=== PATIENT | female | born 1960 | race African-American/Black ===

== ENCOUNTER 2018-11-19 09:56 | Observation (INO) ==
[2018-11-19] MEDS ORDERED: MORPHINE 4 MG/1 ML VIAL IV STA (10:25)
[2018-11-19] MEDS ORDERED: ONDANSETRON 4 MG/2 ML VIAL IV STA (10:25)
[2018-11-19] MEDS ORDERED: ASPIRIN 325 MG TABLET PO STA (10:25)
[2018-11-19 11:29] LABS: Basophils % 0.4 % (0.0-0.8); Eosinophils # 0.1 10*3/uL (0.0-0.87); Eosinophils % 1.4 % (0.00-10.9); Hemoglobin 10.9 GM/DL (12.0-16.0); Immature Granulocytes % 0.3 %; Immature Granulocytes Absolute 0.03 #; Lymphocytes # 1.1 10*3/uL (1.4-4.0); Lymphocytes % 11.9 % (21.3-54.2); Mean Corpuscular HGB Conc 30.3 GM/DL (32-36); Mean Corpuscular Hemoglobin 27 PG (27-34); Mean Corpuscular Volume 87.8 FL (87-102); Mean Platelet Volume 10.7 FL (9.6-12.0); Monocytes # 0.6 10*3/uL (0.11-0.8); Monocytes % 6.5 % (1.7-12.7); Neutrophils # 7.5 10*3/uL (1.4-7.4); Neutrophils % 79.5 % (38.7-73.9); Platelet Count 229 T/CUMM (130-400); Red Cell Distribution Width 14.7 % (9.3-17.3); White Blood Count 9.4 T/CUMM (4-12)
[2018-11-19 11:38] LABS: INR 0.9
[2018-11-19] MEDS ORDERED: hydrALAZINE 20 MG/1 ML VIAL IV STA (11:56)
[2018-11-19 11:59] LABS: Alanine Aminotransferase 23 U/L (13-56); Albumin 3.2 G/DL (3.4-5.0); Alkaline Phosphatase 73 U/L (45-117); Amylase 100 U/L (25-115); Aspartate Amino Transferase 18 U/L (0-37); Bilirubin,Total < 0.39 MG/DL (0.2-1.0); Blood Urea Nitrogen 28 MG/DL (7-18); Calcium 8.9 MG/DL (8.5-10.1); Glucose 149 MG/DL (74-106); Osmolality,Calculated 287.4 MOS/KG (273-304); Potassium 4.3 MMOL/L (3.5-5.1); Sodium 140 MMOL/L (136-145); Total Protein 7.2 G/DL (6.4-8.3)
[2018-11-19] MEDS ORDERED: ALBUTEROL 2.5 MG/3 ML NEB RESP TX PRN (13:46)
[2018-11-19] MEDS ORDERED: DOCUSATE SODIUM 100 MG CAPSULE PO PRN (13:46)
[2018-11-19] MEDS ORDERED: GLUCAGON 1 MG VIAL IM PRN (13:52)
[2018-11-19] MEDS ORDERED: DEXTROSE 50% 25 GM/50 ML VIAL IV PRN (13:52)
[2018-11-19] MEDS ORDERED: ALBUTEROL/IPRATROPIUM 3 ML NEB RESP TX PRN (14:21)
[2018-11-19] MEDS ORDERED: hydrALAZINE 20 MG/1 ML VIAL IV PRN (15:37)
[2018-11-19 18:17] LABS: Troponin I 0.015 NG/ML (0.00-0.045)
[2018-11-19] MEDS: GABAPENTIN 100 MG CAPSULE PO SCH ×2 (18:33→20:53)
[2018-11-19] MEDS: INSULIN LISPRO 100 UNIT/ML SUBCUT SCH ×2 (18:34→21:02)
[2018-11-19] MEDS: ACETAMINOPHEN 325 MG TABLET PO SCH ×2 (18:34→21:57)
[2018-11-19] MEDS: glipiZIDE 5 MG TABLET PO SCH (18:34)
[2018-11-19] MEDS ORDERED: ALBUTEROL/IPRATROPIUM 3 ML NEB RESP TX SCH (19:00)
[2018-11-19] MEDS: ACETAMINOPHEN 325 MG TABLET PO PRN (19:34)
[2018-11-19] MEDS: FLUTICASONE 44 MCG/PUFF INHALER 10.6 GM INH SCH (20:54)
[2018-11-19] MEDS: CARVEDILOL 12.5 MG TABLET PO SCH (20:54)
[2018-11-19] MEDS ORDERED: cloNIDine 0.1 MG TABLET PO SCH (21:00)
[2018-11-19] MEDS ORDERED: ATORVASTATIN 40 MG TABLET PO SCH (21:00)
[2018-11-19] MEDS ORDERED: MELATONIN 3 MG TABLET PO SCH (21:00)
[2018-11-19] MEDS ORDERED: SERTRALINE 25 MG TABLET PO SCH (21:00)
[2018-11-20 03:34] LABS: Basophils % 0.5 % (0.0-0.8); Eosinophils # 0.1 10*3/uL (0.0-0.87); Hemoglobin 9.5 GM/DL (12.0-16.0); Immature Granulocytes % 0.2 %; Immature Granulocytes Absolute 0.01 #; Lymphocytes % 16.4 % (21.3-54.2); Mean Corpuscular HGB Conc 30.6 GM/DL (32-36); Mean Corpuscular Hemoglobin 27 PG (27-34); Mean Corpuscular Volume 86.8 FL (87-102); Mean Platelet Volume 10.8 FL (9.6-12.0); Monocytes # 0.7 10*3/uL (0.11-0.8); Monocytes % 11.7 % (1.7-12.7); Neutrophils # 4.1 10*3/uL (1.4-7.4); Neutrophils % 69.2 % (38.7-73.9); Platelet Count 190 T/CUMM (130-400); Red Blood Count 3.57 MC/CUMM (3.8-5.5); Red Cell Distribution Width 14.5 % (9.3-17.3)
[2018-11-20 03:54] LABS: Calcium 8.3 MG/DL (8.5-10.1); Osmolality,Calculated 289.4 MOS/KG (273-304); Potassium 4.1 MMOL/L (3.5-5.1); Risk Ratio 3.14; Thyroid Stimulating Hormone 1.77 uIU/ml (0.358-3.74)
[2018-11-20] MEDS: ACETAMINOPHEN 325 MG TABLET PO PRN (06:23)
[2018-11-20 06:35] LABS: Apearance,Urine CLEAR (Clear); Bacteria,Urine Occasional /HPF (Few); Bilirubin,Urine Negative (Negative); Blood, Urine Negative (Negative); Glucose,Urine (UA) 50 mg/dL (Negative); Hyaline Casts,Urine 1 /LPF (0-3); Ketones,Urine Negative (Negative); Mucus,Urine Occasional /LPF (Occasional); Nitrite,Urine Negative (Negative); Protein,Urine >=500 MG/DL; RBC,Urine 1 /HPF (0-4); Squamous Epithelial Cell,Urine Occasional /HPF (0-10); Urine Color Yellow (Yellow); Urine Specific Gravity 1.012 (1.001-1.035); Urine Urobilinogen < 2.0 EU/DL (0.2-1.0); WBC,Urine <1 /HPF (0-6)
[2018-11-20] MEDS ORDERED: TRIAMTERENE/HCTZ 37.5-25 MG TABLET PO SCH (09:00)
[2018-11-20] MEDS ORDERED: FUROSEMIDE 20 MG TABLET PO SCH (09:00)
[2018-11-20] MEDS ORDERED: OLMESARTAN 20 MG TABLET PO SCH (09:00)
[2018-11-20] MEDS ORDERED: MONTELUKAST 10 MG TABLET PO SCH (09:00)
[2018-11-20] MEDS ORDERED: CETIRIZINE 10 MG TABLET PO SCH (09:00)
[2018-11-20] MEDS ORDERED: Olopatadine Hcl [Pataday 0.2% Oph Soln] BOTH EYES SCH (09:00)
[2018-11-20] MEDS ORDERED: FEXOFENADINE 180 MG TABLET PO SCH (09:00)
[2018-11-20] MEDS ORDERED: OMEGA 3 ACID ETHYL ESTERS 1 GM CAPSULE PO SCH (09:00)
[2018-11-20] MEDS ORDERED: ASPIRIN EC 81 MG TABLET PO SCH (09:00)
[2018-11-20] MEDS ORDERED: MULTIVITAMIN (CENTRUM) TABLET PO SCH (09:00)
[2018-11-20] MEDS ORDERED: GABAPENTIN 100 MG CAPSULE PO SCH (09:00)
[2018-11-20] MEDS: glipiZIDE 5 MG TABLET PO SCH (09:09)
[2018-11-20] MEDS: INSULIN LISPRO 100 UNIT/ML SUBCUT SCH ×2 (09:09→12:38)
[2018-11-20] MEDS: CARVEDILOL 12.5 MG TABLET PO SCH (09:13)
[2018-11-20] MEDS: FLUTICASONE 44 MCG/PUFF INHALER 10.6 GM INH SCH (09:13)
[2018-11-20] MEDS: ACETAMINOPHEN 325 MG TABLET PO SCH (09:20)
[2018-11-20] MEDS: GABAPENTIN 100 MG CAPSULE PO SCH ×2 (09:20→16:07)
[2018-11-20 11:37] VITALS: BP 122/67
[2018-11-20] MEDS ORDERED: ATORVASTATIN 40 MG TABLET PO SCH (11:52)
[2018-11-20] MEDS ORDERED: DIGOXIN 0.125 MG TABLET PO SCH (13:00)
== END 2018-11-20 16:06 | disposition home or self-care (01) ==
LOC: N.EDINP 09:56 → N.ED 09:56 → N.EDINP 16:06 → N.TELEN 16:16
PROVIDERS: ADMIT Internal Medicine; ATTEND Internal Medicine

== ENCOUNTER 2018-12-06 10:07 | Inpatient (IN) ==
[2018-12-06] MEDS ORDERED: ADENOSINE 6 MG/2 ML VIAL ONE (10:27)
[2018-12-06] MEDS ORDERED: ADENOSINE 6 MG/2 ML VIAL IV STA (10:30)
[2018-12-06] MEDS ORDERED: CARVEDILOL 3.125 MG TABLET PO STA (11:19)
[2018-12-06] MEDS ORDERED: ONDANSETRON 4 MG/2 ML VIAL IV PRN (11:35)
[2018-12-06] MEDS ORDERED: MAGNESIUM SULF RIDER 2 GM in PREMIX 1 EACH IV PRN (11:35)
[2018-12-06] MEDS ORDERED: DOCUSATE SODIUM 100 MG CAPSULE PO PRN (11:35)
[2018-12-06] MEDS ORDERED: ZALEPLON 5 MG CAPSULE PO PRN (11:35)
[2018-12-06] MEDS ORDERED: MORPHINE 4 MG/1 ML VIAL IV PRN (11:35)
[2018-12-06] MEDS ORDERED: MAGNESIUM SULF RIDER 4 GM in PREMIX 1 EACH IV PRN (11:35)
[2018-12-06] MEDS ORDERED: BISACODYL 5 MG TABLET PO PRN (11:35)
[2018-12-06] MEDS ORDERED: guaiFENesin/DM ER 600-30 MG TABLET PO PRN (11:35)
[2018-12-06] MEDS ORDERED: diphenhydrAMINE CAP 25 MG CAPSULE PO PRN (11:35)
[2018-12-06] MEDS ORDERED: COLCHICINE 0.6 MG CAPSULE PO PRN (11:53)
[2018-12-06 11:54] LABS: Basophils % 0.3 % (0.0-0.8); Eosinophils # 0.1 10*3/uL (0.0-0.87); Eosinophils % 0.6 % (0.00-10.9); Hematocrit 29.4 VOL% (35.7-47.0); Immature Granulocytes % 0.5 %; Immature Granulocytes Absolute 0.06 #; Lymphocytes # 1.5 10*3/uL (1.4-4.0); Lymphocytes % 13.9 % (21.3-54.2); Mean Corpuscular HGB Conc 30.6 GM/DL (32-36); Mean Corpuscular Volume 86.5 FL (87-102); Monocytes % 9.3 % (1.7-12.7); Neutrophils % 75.4 % (38.7-73.9); Platelet Count 415 T/CUMM (130-400); Red Cell Distribution Width 14.1 % (9.3-17.3); White Blood Count 10.9 T/CUMM (4-12)
[2018-12-06] MEDS ORDERED: PANTOPRAZOLE 40 MG TABLET PO SCH (12:00)
[2018-12-06 12:31] LABS: Alanine Aminotransferase 22 U/L (13-56); Albumin 2.1 G/DL (3.4-5.0); Alkaline Phosphatase 100 U/L (45-117); Aspartate Amino Transferase 15 U/L (0-37); Bilirubin,Total < 0.39 MG/DL (0.2-1.0); Blood Urea Nitrogen 30 MG/DL (7-18); Calcium 8.4 MG/DL (8.5-10.1); Glucose 156 MG/DL (74-106); Osmolality,Calculated 281.8 MOS/KG (273-304); Total Protein 5.6 G/DL (6.4-8.3)
[2018-12-06] MEDS ORDERED: CARVEDILOL 25 MG TABLET PO ONE (13:30)
[2018-12-06] MEDS ORDERED: MONTELUKAST 10 MG TABLET PO PRN (13:41)
[2018-12-06] MEDS ORDERED: FLUTICASONE 44 MCG/PUFF INHALER 10.6 GM INH PRN (13:41)
[2018-12-06] MEDS ORDERED: DEXTROSE 50% 25 GM/50 ML SYRINGE IV PRN (13:43)
[2018-12-06] MEDS ORDERED: GLUCAGON 1 MG VIAL IM PRN (13:43)
[2018-12-06] MEDS ORDERED: CYCLOBENZAPRINE 10 MG TABLET PO PRN (13:57)
[2018-12-06] MEDS: INSULIN REGULAR 100 UNIT/ML SUBCUT SCH ×2 (15:32→20:56)
[2018-12-06] MEDS: buPROPion 75 MG TABLET PO SCH ×2 (15:48→20:57)
[2018-12-06] MEDS: GABAPENTIN 300 MG CAPSULE PO SCH ×2 (15:49→20:57)
[2018-12-06] MEDS: LIDOCAINE 5% PATCH TRANSDERM SCH (16:35)
[2018-12-06] MEDS: glipiZIDE 5 MG TABLET PO SCH (16:36)
[2018-12-06] MEDS: CARVEDILOL 25 MG TABLET PO SCH (18:50)
[2018-12-06] MEDS: ALBUTEROL/IPRATROPIUM 3 ML NEB RESP TX SCH (19:55)
[2018-12-06] MEDS ORDERED: DIGOXIN 0.5 MG/2 ML AMP IV ONE (20:50)
[2018-12-06] MEDS: ENOXAPARIN 40 MG/0.4 ML SYRINGE SUBCUT SCH (20:56)
[2018-12-06] MEDS: cloNIDine 0.1 MG TABLET PO SCH (20:57)
[2018-12-07 04:31] LABS: Basophils % 0.3 % (0.0-0.8); Eosinophils # 0.1 10*3/uL (0.0-0.87); Eosinophils % 0.8 % (0.00-10.9); Hematocrit 29.3 VOL% (35.7-47.0); Hemoglobin 8.9 GM/DL (12.0-16.0); Immature Granulocytes % 0.5 %; Immature Granulocytes Absolute 0.05 #; Lymphocytes # 1.1 10*3/uL (1.4-4.0); Lymphocytes % 11.4 % (21.3-54.2); Mean Corpuscular HGB Conc 30.4 GM/DL (32-36); Mean Corpuscular Volume 86.9 FL (87-102); Mean Platelet Volume 10.2 FL (9.6-12.0); Monocytes % 9.6 % (1.7-12.7); Neutrophils % 77.4 % (38.7-73.9); Platelet Count 426 T/CUMM (130-400); Red Blood Count 3.37 MC/CUMM (3.8-5.5); Red Cell Distribution Width 14.2 % (9.3-17.3); White Blood Count 9.9 T/CUMM (4-12)
[2018-12-07 05:00] LABS: Calcium 8.8 MG/DL (8.5-10.1); Osmolality,Calculated 284.8 MOS/KG (273-304)
[2018-12-07] MEDS: ALBUTEROL/IPRATROPIUM 3 ML NEB RESP TX SCH ×2 (07:16→20:16)
[2018-12-07] MEDS: INSULIN REGULAR 100 UNIT/ML SUBCUT SCH ×4 (07:55→21:21)
[2018-12-07] MEDS: CARVEDILOL 25 MG TABLET PO SCH ×2 (09:16→16:47)
[2018-12-07] MEDS: GABAPENTIN 300 MG CAPSULE PO SCH ×3 (09:17→21:22)
[2018-12-07] MEDS: glipiZIDE 5 MG TABLET PO SCH ×2 (09:17→16:47)
[2018-12-07] MEDS: PANTOPRAZOLE 40 MG TABLET PO SCH ×2 (09:18→21:18)
[2018-12-07] MEDS: LIDOCAINE 5% PATCH TRANSDERM SCH (09:18)
[2018-12-07] MEDS: buPROPion 75 MG TABLET PO SCH ×2 (09:18→21:17)
[2018-12-07] MEDS: OLMESARTAN 20 MG TABLET PO SCH (09:23)
[2018-12-07] MEDS: TRIAMTERENE/HCTZ 37.5-25 MG TABLET PO SCH (09:23)
[2018-12-07] MEDS: ASPIRIN EC 81 MG TABLET PO SCH (09:24)
[2018-12-07] MEDS ORDERED: GLUCAGON 1 MG VIAL IM PRN (12:17)
[2018-12-07] MEDS ORDERED: DEXTROSE 50% 25 GM/50 ML VIAL IV PRN (12:17)
[2018-12-07] MEDS: SODIUM CHLORIDE 0.9% 2,000 ML IV SCH (15:40)
[2018-12-07] MEDS: DRONEDARONE 400 MG TABLET PO SCH (16:47)
[2018-12-07] MEDS ORDERED: DRONEDARONE 400 MG TABLET PO SCH (17:00)
[2018-12-07] MEDS: cloNIDine 0.1 MG TABLET PO SCH (21:17)
[2018-12-07] MEDS: ENOXAPARIN 40 MG/0.4 ML SYRINGE SUBCUT SCH (21:19)
[2018-12-08] MEDS: SODIUM CHLORIDE 0.9% 2,000 ML IV SCH ×2 (01:28→10:36)
[2018-12-08 04:21] LABS: Basophils % 0.4 % (0.0-0.8); Eosinophils # 0.1 10*3/uL (0.0-0.87); Eosinophils % 1.5 % (0.00-10.9); Hematocrit 25.7 VOL% (35.7-47.0); Hemoglobin 7.7 GM/DL (12.0-16.0); Immature Granulocytes % 0.7 %; Immature Granulocytes Absolute 0.07 #; Lymphocytes # 1.6 10*3/uL (1.4-4.0); Lymphocytes % 17.2 % (21.3-54.2); Mean Corpuscular Volume 88.3 FL (87-102); Mean Platelet Volume 9.6 FL (9.6-12.0); Monocytes % 10.3 % (1.7-12.7); Neutrophils % 69.9 % (38.7-73.9); Platelet Count 416 T/CUMM (130-400); Red Blood Count 2.91 MC/CUMM (3.8-5.5); Red Cell Distribution Width 14.4 % (9.3-17.3); White Blood Count 9.5 T/CUMM (4-12)
[2018-12-08 04:44] LABS: Calcium 8.6 MG/DL (8.5-10.1)
[2018-12-08 05:20] LABS: Alanine Aminotransferase 51 U/L (13-56); Albumin 1.9 G/DL (3.4-5.0); Alkaline Phosphatase 149 U/L (45-117); Aspartate Amino Transferase 63 U/L (0-37); Bilirubin,Total < 0.39 MG/DL (0.2-1.0); Blood Urea Nitrogen 49 MG/DL (7-18); Calcium 8.5 MG/DL (8.5-10.1); Glucose 91 MG/DL (74-106); Osmolality,Calculated 285.8 MOS/KG (273-304); Total Protein 6.4 G/DL (6.4-8.3)
[2018-12-08] MEDS: ALBUTEROL/IPRATROPIUM 3 ML NEB RESP TX SCH ×2 (07:30→20:15)
[2018-12-08] MEDS: INSULIN REGULAR 100 UNIT/ML SUBCUT SCH ×4 (08:04→22:19)
[2018-12-08] MEDS: OLMESARTAN 20 MG TABLET PO SCH (09:01)
[2018-12-08] MEDS: glipiZIDE 5 MG TABLET PO SCH ×2 (09:02→16:51)
[2018-12-08] MEDS: DRONEDARONE 400 MG TABLET PO SCH (09:02)
[2018-12-08] MEDS: TRIAMTERENE/HCTZ 37.5-25 MG TABLET PO SCH (09:02)
[2018-12-08] MEDS: ASPIRIN EC 81 MG TABLET PO SCH (09:02)
[2018-12-08] MEDS: PANTOPRAZOLE 40 MG TABLET PO SCH ×2 (09:03→21:50)
[2018-12-08] MEDS: LIDOCAINE 5% PATCH TRANSDERM SCH (09:03)
[2018-12-08] MEDS: CARVEDILOL 25 MG TABLET PO SCH ×2 (09:03→16:51)
[2018-12-08] MEDS: GABAPENTIN 300 MG CAPSULE PO SCH (09:08)
[2018-12-08] MEDS: buPROPion 75 MG TABLET PO SCH ×2 (09:20→21:49)
[2018-12-08] MEDS: FLECAINIDE 50 MG TABLET PO SCH ×2 (13:11→21:50)
[2018-12-08] MEDS: GABAPENTIN 100 MG CAPSULE PO SCH (22:04)
[2018-12-08] MEDS: ENOXAPARIN 30 MG/0.3 ML SYRINGE SUBCUT SCH (22:19)
[2018-12-09 04:53] LABS: Basophils % 0.4 % (0.0-0.8); Eosinophils # 0.2 10*3/uL (0.0-0.87); Eosinophils % 2.3 % (0.00-10.9); Hematocrit 24.2 VOL% (35.7-47.0); Hemoglobin 7.4 GM/DL (12.0-16.0); Immature Granulocytes % 0.6 %; Immature Granulocytes Absolute 0.04 #; Lymphocytes # 1.6 10*3/uL (1.4-4.0); Lymphocytes % 22.1 % (21.3-54.2); Mean Corpuscular HGB Conc 30.6 GM/DL (32-36); Mean Corpuscular Volume 86.7 FL (87-102); Mean Platelet Volume 10.2 FL (9.6-12.0); Monocytes % 11.3 % (1.7-12.7); Neutrophils % 63.3 % (38.7-73.9); Platelet Count 390 T/CUMM (130-400); Red Blood Count 2.79 MC/CUMM (3.8-5.5); Red Cell Distribution Width 14.6 % (9.3-17.3)
[2018-12-09 05:16] LABS: Calcium 8.8 MG/DL (8.5-10.1); Osmolality,Calculated 285.8 MOS/KG (273-304)
[2018-12-09] MEDS: ALBUTEROL/IPRATROPIUM 3 ML NEB RESP TX SCH ×2 (07:05→20:25)
[2018-12-09] MEDS: INSULIN REGULAR 100 UNIT/ML SUBCUT SCH ×4 (07:45→21:16)
[2018-12-09] MEDS: LIDOCAINE 5% PATCH TRANSDERM SCH (08:29)
[2018-12-09] MEDS: glipiZIDE 5 MG TABLET PO SCH ×2 (08:30→17:36)
[2018-12-09] MEDS: GABAPENTIN 100 MG CAPSULE PO SCH ×3 (08:30→21:21)
[2018-12-09] MEDS: CARVEDILOL 25 MG TABLET PO SCH ×2 (08:30→17:36)
[2018-12-09] MEDS: FLECAINIDE 50 MG TABLET PO SCH ×2 (08:30→21:14)
[2018-12-09] MEDS: PANTOPRAZOLE 40 MG TABLET PO SCH ×2 (08:30→21:14)
[2018-12-09] MEDS: buPROPion 75 MG TABLET PO SCH ×2 (08:31→21:15)
[2018-12-09] MEDS: ASPIRIN EC 81 MG TABLET PO SCH (08:59)
[2018-12-09 10:32] LABS: Apearance,Urine CLEAR (Clear); Bacteria,Urine Occasional /HPF (Few); Bilirubin,Urine Negative (Negative); Blood, Urine Negative (Negative); Glucose,Urine (UA) Negative (Negative); Ketones,Urine Negative (Negative); Mucus,Urine Occasional /LPF (Occasional); Nitrite,Urine Negative (Negative); Protein,Urine 100 MG/DL; RBC,Urine 2 /HPF (0-4); Squamous Epithelial Cell,Urine Occasional /HPF (0-10); Urine Color Yellow (Yellow); Urine Specific Gravity 1.011 (1.001-1.035); Urine Urobilinogen < 2.0 EU/DL (0.2-1.0); WBC,Urine <1 /HPF (0-6)
[2018-12-09] MEDS: SODIUM CHLORIDE 0.9% 1,000 ML IV SCH (12:16)
[2018-12-09] MEDS: ENOXAPARIN 30 MG/0.3 ML SYRINGE SUBCUT SCH (21:20)
[2018-12-10] MEDS: SODIUM CHLORIDE 0.9% 1,000 ML IV SCH ×3 (02:35→16:31)
[2018-12-10 04:53] LABS: Basophils % 0.6 % (0.0-0.8); Eosinophils # 0.2 10*3/uL (0.0-0.87); Eosinophils % 2.6 % (0.00-10.9); Hematocrit 24.5 VOL% (35.7-47.0); Hemoglobin 7.4 GM/DL (12.0-16.0); Immature Granulocytes % 0.3 %; Immature Granulocytes Absolute 0.02 #; Lymphocytes # 1.2 10*3/uL (1.4-4.0); Lymphocytes % 18.3 % (21.3-54.2); Mean Corpuscular HGB Conc 30.2 GM/DL (32-36); Mean Corpuscular Volume 87.5 FL (87-102); Mean Platelet Volume 10.7 FL (9.6-12.0); Monocytes % 9.6 % (1.7-12.7); Neutrophils % 68.6 % (38.7-73.9); Platelet Count 416 T/CUMM (130-400); Red Cell Distribution Width 14.5 % (9.3-17.3); White Blood Count 6.3 T/CUMM (4-12)
[2018-12-10 05:10] LABS: Calcium 8.3 MG/DL (8.5-10.1); Osmolality,Calculated 289.5 MOS/KG (273-304)
[2018-12-10] MEDS: ALBUTEROL/IPRATROPIUM 3 ML NEB RESP TX SCH ×2 (07:33→18:50)
[2018-12-10] MEDS: INSULIN REGULAR 100 UNIT/ML SUBCUT SCH ×4 (08:04→21:42)
[2018-12-10] MEDS: CARVEDILOL 25 MG TABLET PO SCH ×2 (08:29→16:31)
[2018-12-10] MEDS: ASPIRIN EC 81 MG TABLET PO SCH (08:29)
[2018-12-10] MEDS: FLECAINIDE 50 MG TABLET PO SCH ×2 (08:29→21:41)
[2018-12-10] MEDS: GABAPENTIN 100 MG CAPSULE PO SCH ×3 (08:29→21:42)
[2018-12-10] MEDS: PANTOPRAZOLE 40 MG TABLET PO SCH ×2 (08:29→21:41)
[2018-12-10] MEDS: LIDOCAINE 5% PATCH TRANSDERM SCH (08:29)
[2018-12-10] MEDS: buPROPion 75 MG TABLET PO SCH ×2 (08:29→21:42)
[2018-12-10 08:45] LABS: % Iron Saturation 17.2 % (18-50); Ferritin 535.5 ng/ml (8-252)
[2018-12-10] MEDS: ENOXAPARIN 30 MG/0.3 ML SYRINGE SUBCUT SCH (21:42)
[2018-12-11] MEDS ORDERED: dilTIAZem Drip 125 MG/125 ML PREMIX IV SCH (00:30)
[2018-12-11 04:33] LABS: Basophils % 0.4 % (0.0-0.8); Eosinophils # 0.2 10*3/uL (0.0-0.87); Eosinophils % 2.4 % (0.00-10.9); Hematocrit 25.3 VOL% (35.7-47.0); Hemoglobin 7.5 GM/DL (12.0-16.0); Immature Granulocytes % 0.4 %; Immature Granulocytes Absolute 0.03 #; Lymphocytes # 1.1 10*3/uL (1.4-4.0); Lymphocytes % 16.3 % (21.3-54.2); Mean Corpuscular HGB Conc 29.6 GM/DL (32-36); Mean Corpuscular Volume 87.8 FL (87-102); Mean Platelet Volume 10.5 FL (9.6-12.0); Monocytes % 8.3 % (1.7-12.7); Neutrophils % 72.2 % (38.7-73.9); Platelet Count 412 T/CUMM (130-400); Red Blood Count 2.88 MC/CUMM (3.8-5.5); Red Cell Distribution Width 14.3 % (9.3-17.3); White Blood Count 6.8 T/CUMM (4-12)
[2018-12-11 05:05] LABS: Calcium 8.9 MG/DL (8.5-10.1); Osmolality,Calculated 291.3 MOS/KG (273-304)
[2018-12-11] MEDS: SODIUM CHLORIDE 0.9% 1,000 ML IV SCH (06:00)
[2018-12-11] MEDS: ALBUTEROL/IPRATROPIUM 3 ML NEB RESP TX SCH (07:56)
[2018-12-11] MEDS ORDERED: LACTATED RINGERS 500 ML IV SCH (08:00)
[2018-12-11] MEDS: INSULIN REGULAR 100 UNIT/ML SUBCUT SCH ×3 (08:40→16:39)
[2018-12-11] MEDS: PANTOPRAZOLE 40 MG TABLET PO SCH (09:03)
[2018-12-11] MEDS: buPROPion 75 MG TABLET PO SCH (09:03)
[2018-12-11] MEDS: FLECAINIDE 50 MG TABLET PO SCH (09:03)
[2018-12-11] MEDS: ASPIRIN EC 81 MG TABLET PO SCH (09:03)
[2018-12-11] MEDS: CARVEDILOL 25 MG TABLET PO SCH ×2 (09:03→17:17)
[2018-12-11] MEDS: LIDOCAINE 5% PATCH TRANSDERM SCH (09:04)
[2018-12-11] MEDS: GABAPENTIN 100 MG CAPSULE PO SCH ×2 (09:08→15:51)
[2018-12-11 16:09] VITALS: BP 117/71
== END 2018-12-11 18:25 | disposition home or self-care (01) | DRG 683 ==
LOC: EDBD → EDUNIT# → N.EDINP 10:07 → N.ED 10:07 → N.TELES 11:48
PROVIDERS: ADMIT Internal Medicine Cardiovascular Disease; ATTEND Internal Medicine Cardiovascular Disease